=== PATIENT | female | born 1985 | race Caucasian/White ===

== ENCOUNTER 2016-10-22 11:45 | Emergency (ER) | payer MEDICAID ==
[~2016-10-22] VITALS: Ht 170.2 cm; Wt 58.5 kg
[~2016-10-22 11:45] MED LIST: IBUP600 PO
[2016-10-22 11:47] VITALS: BP 116/76; PULSE 88; RESP 20; TEMP 98.1; O2SAT 98
--- NOTE | 2016-10-22 12:45 | PD ---
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 She is 5 weeks . She had gone to [facility] 3 days ago for this. They done an ultrasound and were unable to see anything. They did blood test and asked her to follow up in 48 hours for repeat blood test at this hospital. Her beta hCG Quant was 1649 3 days ago. Patient says she is still bleeding but the bleeding has lessened in amount. She has some lower back and lower abdominal cramps. Patient was a positive from the blood test. [facility] Past Medical History Narrative Medical List of her past medical, surgical, social and family history is reviewed from the nursing note. Hx Anticoagulant Therapy: No Cardiovascular Problems: No Chemotherapy: No Cerebrovascular Accident: No Diabetes: No Respiratory: No ?: LMP: 6 weeks Past Surgical History Hysterectomy: No Other Surgery: Yes (BREAST) Social History Alcohol Use: Yes (OCCASIONALLY) Tobacco Use: Yes (1 PPD) Substance Use: No Allergies-Medications (Allergen,Severity, Reaction): Coded Allergies: No Known Allergies (Unverified , 10/22/16) Comments No known drug allergies. Reported Meds & Prescriptions Reported Meds & Active Scripts Active No Active Prescriptions or Reported Medications Narrative Medication List of her home medications reviewed from the nursing note. Review of Systems Except as stated in HPI: all other systems reviewed are Neg Physical Exam Narrative GENERAL: Awake, alert, no obvious distress SKIN: Warm and dry. HEAD: Atraumatic. Normocephalic. EYES: Pupils equal and round. No scleral icterus. No injection or drainage. ENT: No nasal bleeding or discharge. Mucous membranes pink and moist. NECK: Trachea midline. No JVD. CARDIOVASCULAR: Regular rate and rhythm. No murmur appreciated. RESPIRATORY: No accessory muscle use. Clear to auscultation. Breath sounds equal bilaterally. GASTROINTESTINAL: Abdomen soft, non-tender, nondistended. Hepatic and splenic margins not palpable. MUSCULOSKELETAL: No obvious deformities. No clubbing. No cyanosis. No edema. NEUROLOGICAL: Awake and alert. No obvious cranial nerve deficits. Motor grossly within normal limits. Normal speech. PSYCHIATRIC: Appropriate mood and affect; insight and judgment normal. Data Data Last Documented VS Vital Signs Date Time Temp Pulse Resp B/P Pulse Ox O2 Delivery O2 Flow Rate FiO2 10/22/16 14:15 97.8 76 17 122/76 99 10/22/16 11:47 Room Air Orders Beta Hcg (Quant/Titer) (10/22/16 12:48) Complete Blood Count With Diff (10/22/16 12:48) Sodium Chlor 0.9% 1000 Ml Inj (Ns 1000 M (10/22/16 13:00) Mandatory Outpatient Referral (10/22/16 13:59) Labs Laboratory Tests Test 10/22/16 13:00 White Blood Count 11.7 TH/MM3 Red Blood Count 3.76 MIL/MM3 Hemoglobin 12.3 GM/DL Hematocrit 36.7 % Mean Corpuscular Volume 97.6 FL Mean Corpuscular Hemoglobin 32.7 PG Mean Corpuscular Hemoglobin 33.5 % Concent Red Cell Distribution Width 12.5 % Platelet Count 247 TH/MM3 Mean Platelet Volume 8.1 FL Neutrophils (%) (Auto) 66.7 % Lymphocytes (%) (Auto) 22.4 % Monocytes (%) (Auto) 8.8 % Eosinophils (%) (Auto) 1.1 % Basophils (%) (Auto) 1.0 % Neutrophils # (Auto) 7.8 TH/MM3 Lymphocytes # (Auto) 2.6 TH/MM3 Monocytes # (Auto) 1.0 TH/MM3 Eosinophils # (Auto) 0.1 TH/MM3 Basophils # (Auto) 0.1 TH/MM3 CBC Comment DIFF FINAL Differential Comment Human Chorionic Gonadotropin, 86 MIU/ML Quant MDM Medical Decision Making Medical Screen Exam Complete: Yes Emergency Medical Condition: Yes Medical Record Reviewed: Yes Differential Diagnosis Threatened miscarriage, ectopic , incomplete miscarriage Narrative Course 2 PM beta-hCG is back in its 89. This is significantly low than her beta-hCG from 3 days ago. I would expect it to at least doubled by this time. Given her history it sounds like an incomplete . I have ordered a mandatory referral with DIRECTOR OF STRATEGIC SALES construction and maintenance inspector today. Patient will be discharged home with instructions. She understands. Procedures EKG Prior to Arrival: No Diagnosis Primary Impression: Incomplete Referrals: Fitz Kim MD 2 days Additional Instructions: Please return to the ER if the bleeding worsens or any fever or chills. Otherwise follow-up with the DIRECTOR OF STRATEGIC SALES whose name and number been provided to you. Do not use any tampons, no intercourse until THE BLEEDING CONTINUES AND NOTHING IN THE VAGINA. Med/Other Pt SpecificInfo: No Change to Meds Scripts No Active Prescriptions or Reported Meds Disposition: 01 DISCHARGE HOME Condition: Stable Meagan Thomas MD Oct 22, 2016 12:44
[2016-10-22] MEDS ORDERED: SODIUM CHLOR 0.9% 1000 ML INJ 1,000 ML IV ONE (13:00)
[2016-10-22 13:18] LABS: AUTOMATED NEUTROPHIL # 7.8 TH/MM3 (1.8-7.7); BASOPHIL # 0.1 TH/MM3 (0-0.2); EOSINOPHIL # 0.1 TH/MM3 (0-0.4); EOSINOPHIL % 1.1 % (0.0-4.0); HEMATOCRIT 36.7 % (35.0-46.0); HEMO FLAGS DIFF FINAL; LYMPH % 22.4 % (9.0-44.0); LYMPHOCYTE # 2.6 TH/MM3 (1.0-4.8); MEAN CELL VOLUME 97.6 FL (80.0-100.0); MEAN CORPUSCULAR HEMOGLOBIN 32.7 PG (27.0-34.0); MEAN CORPUSCULAR HGB CONC 33.5 % (32.0-36.0); MONO % 8.8 % (0.0-8.0); NEUT % 66.7 % (16.0-70.0); PLATELET COUNT 247 TH/MM3 (150-450); RED BLOOD COUNT 3.76 MIL/MM3 (4.00-5.30); RED CELL DISTRIBUTION WIDTH 12.5 % (11.6-17.2); WHITE BLOOD COUNT 11.7 TH/MM3 (4.0-11.0)
[2016-10-22 13:41] LABS: BETA HCG QUANT 86 MIU/ML (0-5)
[2016-10-22 14:15] VITALS: BP 122/76; TEMP 97.8
== END 2016-10-22 14:15 | disposition home or self-care (01) ==
LOC: NEPE 11:45
DX: O03.4 Incomplete spontaneous abortion without complication (principal)
CPT/HCPCS: 84702; 85025; 96360; 99284; J7030